=== PATIENT | male | born 1995 | race Caucasian/White ===

== ENCOUNTER 2020-04-28 00:32 | Outpatient (CLI) | payer BC, SELFPAY ==
--- NOTE | 2020-04-28 09:22 | DI.RAD_ITS ---
EXAM: XR KNEE LT 2V AP,LAT CLINICAL HISTORY: LT KNEE TIBIAL PLATEAU FX, ORIF,? CHANGE FROM PREVIOUS XRAY. TECHNIQUE: 2D digital imaging was performed. COMPARISON: DX XR KNEE 1-2 VIEWS LEFT (GENERIC) from 03/18/2020 FINDINGS: BONES: There again seen 2 screws traversing the left knee tibial plateau fracture. There has been n o change in alignment of the orthopedic hardware or the fracture components. No bony destructive les ion is seen. The bones are osteopenic suggesting decreased use. No new fracture or dislocation is pr esent. JOINTS: The knee is normally aligned. No joint effusion is seen. SOFT TISSUE: Normal. IMPRESSION: Stable left knee. DATA REPOSITORY: RADIATION DOSE DELIVERED:
== END 2020-04-28 00:52 ==
PROVIDERS: PCP Physician Assistant; Visit Provider Nurse Practitioner Adult Health
DX: S82.142A Displaced bicondylar fracture of left tibia, initial encounter for closed fracture (principal)
CPT/HCPCS: 73560